=== PATIENT | female | born 1975 | race Two or more races ===

== ENCOUNTER → 2024-07-24 | Outpatient (CLI) | payer OTHER, SELFPAY ==
--- NOTE | 2024-07-24 13:21 | XR_ITS ---
Examination: Diagnostic digital mammography, unilateral, right Computer aided detection 3-D breast Tomosynthesis, unilateral Date and time of exam: July 24, 2024 1329 hours INDICATIONS: Mammogram November 15, 2023 12 mm focal asymmetry outer right breast posterior depth, 12.5 cm from the nipple Technique: Nonmagnified MLO, CC views of the right breast have been obtained, reconstructed from 3-D Tomosynthesis images. R2 computer aided detection program utilized for evaluation of suspicious masses and/or abnormal calcifications. 3-D Tomosynthesis images obtained. Findings: The breast is heterogeneously dense, which may obscure small masses Stable focal asymmetry outer right breast No interval suspicious masses Impression: BI-RADS category 2: Benign findings Return to yearly follow-up mammography
== END | disposition home or self-care (01) ==
PROVIDERS: PCP Internal Medicine; Referring Provider Internal Medicine; Visit Provider Internal Medicine
DX: R92.321 Mammographic fibroglandular density, right breast (principal)
CPT/HCPCS: 77061; 77065; G0279

== ENCOUNTER → 2024-12-08 | Outpatient (CLI) | payer OTHER, SELFPAY ==
[2024-12-08 13:22] LABS: Basophils # (Auto) 0.1 Thou/mm3 (0.0-0.2); Basophils % (Auto) 1 % (0-2.5); Eosinophils # (Auto) 0.1 Thou/mm3 (0.0-0.5); Eosinophils % (Auto) 2 % (0-10); Hematocrit 40.2 % (36.0-46.0); Hemoglobin 12.9 g/dL (12.0-16.0); Immature Granulocytes % (Auto) 0 % (0-0); Immature Granulocytes Auto 0.01 Thou/mm3 (0.00-0.00); Lymphocytes # (Auto) 1.8 Thou/mm3 (1.0-4.8); Lymphocytes % (Auto) 31 % (10-50); Mean Corpuscular HGB Conc 32.1 g/dl (31.0-37.0); Mean Corpuscular Hemoglobin 29.1 pg (25.0-35.0); Mean Corpuscular Volume 91 fL (80-100); Monocytes # (Auto) 0.4 Thou/mm3 (0.0-0.8); Monocytes % (Auto) 6 % (0-12); Neutrophils # (Auto) 3.3 Thou/mm3 (1.8-7.7); Neutrophils % (Auto) 59 % (37-80); Nucleated Red Blood Cell % 0 /100 WBC (0); Platelet Count 249 Thou/mm3 (140-440); RDW Standard Deviation 46.7 fL (36.4-46.3); Red Blood Count 4.44 Miln/mm3 (4.00-5.20); White Blood Count 5.6 Thou/mm3 (3.6-11.0)
[2024-12-08 13:32] LABS: Parathyroid Hormone Intact 36.5 pg/ml (18.5-88.0)
[2024-12-08 13:35] LABS: Glucose Estimated Average 97 mg/dL (80-131)
[2024-12-08 13:37] LABS: Ferritin 14 ng/mL (7.3-270.7); Iron 104 mcg/dL (50-170); Total Iron Binding Capacity 328 mcg/dL (250-425)
[2024-12-08 13:39] LABS: Alanine Aminotransferase 11 U/L (10-49); Albumin, Serum 4.5 gm/dL (3.5-5.0); Albumin/Globulin Ratio 1.5 (1.2-2.2); Alkaline Phosphatase 51 U/L (46-116); Anion Gap 11 (7-16); Aspartate Amino Transferase 21 U/L (0-34); BUN/Creatinine Ratio 23 Ratio (12-20); Bilirubin,Total 0.5 mg/dL (0.3-1.2); Blood Urea Nitrogen 30 mg/dL (9-23); Calcium 9.1 mg/dL (8.3-10.6); Calcium (Corrected) 9.1 mg/dL (8.5-10.1); Carbon Dioxide 20.9 mMol/L (20.0-31.0); Cardiac Risk Estimate 3.1 RATIO (3.7-5.6); Chloride 108 mMol/L (98-107); Cholesterol 163 mg/dL (132-200); Creatinine (Component) 1.3 mg/dL (0.6-1.3); Globulin 3.1 gm/dL (2.3-3.5); Glucose 79 mg/dL (74-106); HDL Cholesterol 52 mg/dL (40-60); LDL Cholesterol,Calculated 94 mg/dL (0-130); Osmolality,Calculated 284 (275-295); Potassium 3.1 mMol/L (3.4-5.1); Sodium 140 mMol/L (136-145); Thyroid Stimulating Hormone 1.67 uIU/mL (0.55-4.78); Total Protein 7.6 gm/dL (5.7-8.2); Triglycerides 83 mg/dL (30-150); eGFR 51 See Note
[2024-12-08 14:23] LABS: Folate 17.77 ng/mL (>5.38); Vitamin B12 > 2000 pg/mL (211-911)
== END | disposition home or self-care (01) ==
LOC: COPL 11:39
PROVIDERS: PCP Internal Medicine; Referring Provider Surgery; Visit Provider Surgery
DX: E44.0 Moderate protein-calorie malnutrition (principal); E56.9 Vitamin deficiency, unspecified; R53.82 Chronic fatigue, unspecified; R53.81 Other malaise; Z98.84 Bariatric surgery status
CPT/HCPCS: 36415; 80053; 80061; 82607; 82652; 82728; 82746; 83036; 83540; 83550; 83970; 84207; 84425; 84443; 85025

== ENCOUNTER → 2025-03-18 | Outpatient (CLI) | payer OTHER, SELFPAY ==
--- NOTE | 2025-03-18 14:55 | XR_ITS ---
Examination: CT brain head without contrast. 2-D sagittal coronal reconstructions Date and time of exam:March 18, 2025 1413 hours INDICATIONS: Patient fell today with injury to the head, head pain CTDI: vol (mGy):48 DLP: (mGycm):963 Technique: Multiple CT axial sections of the brain have been obtained, 5 mm slice thickness. Contrast has not been administered. 2-D sagittal, coronal reconstructions have been obtained Low dose protocols were performed. One or more of the following dose reduction techniques were used; automated exposure control, adjustment of the mA and/or KV according to patient size, use of iterative reconstruction technique. Findings: No significant ventricular enlargement. Intra-axial or extra-axial hemorrhage density is not seen. No mass effect or midline shift Basal cisterns are not remarkable. Fourth ventricle is midline. Cranial vault intact. Impression: Negative for acute hemorrhage, mass effect or midline shift
== END | disposition home or self-care (01) ==
PROVIDERS: PCP Internal Medicine; Referring Provider Internal Medicine; Visit Provider Internal Medicine
DX: S09.90XA Unspecified injury of head, initial encounter (principal); W19.XXXA Unspecified fall, initial encounter
CPT/HCPCS: 70450

== ENCOUNTER → 2025-04-19 | Outpatient (CLI) | payer OTHER, SELFPAY ==
--- NOTE | 2025-04-19 16:15 | XR_ITS ---
Examination: MRI lumbar spine without contrast Date and time of exam: April 19, 2025 1711 hrs., Comparison August 17, 2011 Indications: Injury to lower back 2022 with continued low back pain radiating down the right leg with numbness and paresthesias right leg Technique: Multiple MRI axial and sagittal sections lumbar spine. Sagittal T2-weighted images, TR 3500, TE 118 T1 weighted transverse sections, TR 688 T8.5, T2-weighted sagittal sections T1 weighted sagittal sections TR 621, TE 30 T2 axial sections, TR 4, 190, TE 84. Findings: Adequate alignment lumbar vertebral bodies on the lateral view Disc desiccation lower 2 lumbar levels. No spondylolisthesis. L5-S1 3 mm central lumbar disc bulge with posterior central annular disc tear, 4 mm right foraminal disc bulge with mild right L5 ganglionic compression L4-L5 5 mm central lumbar disc bulge extending to the foraminal regions More cephalad levels unremarkable Impression: L5-S1 3 mm central lumbar right foraminal disc bulge with mild right L5 ganglionic compression. L4-L5 5 mm central lumbar disc bulge
== END | disposition home or self-care (01) ==
LOC: SMRI 16:09
PROVIDERS: PCP Internal Medicine; Referring Provider Nurse Practitioner Family; Visit Provider Nurse Practitioner Family
DX: M51.360 Other intervertebral disc degeneration, lumbar region with discogenic back pain only (principal); M51.370 Other intervertebral disc degeneration, lumbosacral region with discogenic back pain only; G95.20 Unspecified cord compression
CPT/HCPCS: 72148